=== PATIENT | female | born 1990 | race Caucasian/White ===

== ENCOUNTER 2018-02-05 15:37 | Outpatient (CLI) | payer MEDICAID, SELFPAY ==
[2018-02-07 12:26] LABS: Syphilis Serology (RPR) Negative (Negative)
[2018-02-07 12:38] LABS: Hepatitis C Ab w Rflx HCV PCR Negative (NEGAT)
== END 2018-02-05 15:57 ==
PROVIDERS: Visit Provider Nurse Practitioner Adult Health
DX: Z11.8 Encounter for screening for other infectious and parasitic diseases (principal); Z11.3 Encounter for screening for infections with a predominantly sexual mode of transmission; Z01.84 Encounter for antibody response examination
CPT/HCPCS: 36415; 86803; 86592

== ENCOUNTER 2018-03-20 11:49 | Emergency (ER) | payer MEDICAID, SELFPAY ==
[2018-03-20 11:53] VITALS: BP 123/81; PULSE 102; RESP 20; TEMP 36.7; O2SAT 100
--- NOTE | 2018-03-20 12:27 | W.ED.GENAD ---
Discharge Plan Disposition Patient Disposition: HOME Condition: Good Discharge Details Chief Complaint: Nk/Back Pain Clinical Impression: Low back strain Primary Care Provider: NONE,NONE ED Provider: Poi Sierra Meds and New Rx's Prescriptions: New methylprednisolone [Medrol (Farzad)] 4 mg tablets,dose pack 4 mg PO DAILY Qty: 21 RF: 0 cyclobenzaprine 10 mg tablet 10 mg PO TID PRN (Reason: muscle spasm) Qty: 9 RF: 0 lidocaine 5 % adhesive patch,medicated 1 patch TP DAILY Qty: 5 RF: 0 No Action medroxyprogesterone [Depo-Provera] 150 mg/mL Suspension 1 ea IM [id number] RF: 0 lf-uy-wdzb-FA-Ca carb-vit K [Women's Multivitamin] 18 mg iron-400 mcg-500 mg Tablet 1 tab PO DAILY RF: 0 Discharge Instructions Instructions: Low Back Strain (ED) Stand Alone Forms: Physical Therapy Referral Referrals: [facility]. [Outside] - Return if symptoms worsen Discharge Data Discharge Date/Time-TO BE ENTERED AT DEPARTURE: 03/20/18 14:07 Medical Decision Making Likely exacerbation of chronic back pain with muscle strain. She has never had x-ray so we will get baseline today. Last visit here for same injury/pain Valium 10 mg PO was used with good benefit so we will start with that. I advised she should not work and rest for at least a week. I will refer to PT and advised to fu with pcp in a month. I will also try her on a medrol dose pack. Pt reports improvement after Valium. Apprised of x-ray impression. I prescribed Flexeril, lidocaine patches, and steroids. Advised to rest and return to ED if symptoms worsen otherwise with pcp. PT referral provided. Imaging Data Radiologic Study: My impression: no acute esperanza pathology. Radiologist's impression: normal LS spine HPI General Date/Time Provider Initiated Documentation: 03/20/18 12:10. Limitations to Documentation: no limitations. Information obtained by: patient. History of Present Illness 27 year old F presents to the emergency department with the chief complaint of low back pain, HPI Narrative: 27 y/o female here with c/o low back pain that radiates down right leg. She felt a pull in her back last night while lifting a large bag of garbage. 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 She denies any fever, chills, cp, sob, or /GI complaints. She was evaluated and treated for similar problem three months ago here in the ED with Valium and rolandoeril with GE. Related Data Home Medications Medication Instructions Recorded Confirmed cyclobenzaprine 10 mg PO TID PRN #9 tab 03/20/18 lidocaine 1 patch TP DAILY #5 each 03/20/18 medroxyprogesterone [Depo-Provera] 1 ea IM [id number] 03/20/18 03/20/18 methylprednisolone [Medrol (Farzad)] 4 mg PO DAILY #21 dose pk 03/20/18 fj-qa-wsre-FA-Ca carb-vit K 1 tab PO DAILY 03/20/18 03/20/18 [Women's Multivitamin] Previous Rx's Medication Instructions Recorded cyclobenzaprine 10 mg PO TID PRN #9 tab 03/20/18 lidocaine 1 patch TP DAILY #5 each 03/20/18 methylprednisolone [Medrol (Farzad)] 4 mg PO DAILY #21 dose pk 03/20/18 Allergies Allergy/AdvReac Type Severity Reaction Status Date / Time venom-honey bee AdvReac swelling Verified 03/20/18 11:54 [bee venom (honey bee)] of area General Stated Complaint: Nk/Back Pain ANUJ: 4 Review of Systems Constitutional Reports as per HPI Cardiovascular Reports system reviewed and no additional complaints, except as docu Respiratory Reports system reviewed and no additional complaints, except as docu Gastrointestinal Reports system reviewed and no additional complaints, except as docu Musculoskeletal Reports back pain PFSH Social History Smoking/Tobacco Use Status: Current every day Exam Const General: cooperative, no acute distress and other (smells og cigerettes ) Nutritional Appearance: well nourished Orientation: alert, awake and oriented x3 Eyes General: appearance normal, both eyes and all related structures Neck Neck: normal visual inspection, full ROM, no lymphadenopathy and no meningeal signs Resp Effort & Inspection: normal respiratory effort Auscultation: clear to auscultation bilaterally Cardio Rhythm: regular rhythm Heart Sounds: S1 normal and S2 normal GI Inspection: normal to inspection Palpation: nontender Back/Spine/Pelvis Back: no CVA tenderness and CVA tenderness Cervical Spine: normal cervical lordosis, cervical ROM normal and No cervical muscular tenderness Thoracic/Lumbar Spine: thoracic and lumbar spine normal to inspection, thoraco-lumbar ROM normal, pain with thoraco-lumbar ROM, paraspinal tenderness, No thoracic spinal tenderness, No lumbar spinal tenderness and straight leg raise positive Pelvis: no pain with anterior-posterior compression and sciatic notch tenderness on the right Sacrum: no ecchymosis and no tenderness Coccyx: no swelling and no tenderness Other: no saddle anesthesia Skin General skin exam: no rashes or lesions noted Neuro General: alert, awake, oriented x3 and gait normal Extrem General: normal to inspection, full ROM and normal capillary refill Psych Appearance: grossly normal Mental Status: mental status grossly normal Speech and Movement: speech and movement normal Course Vital Signs Temperature 36.7 C 03/20/18 11:53 Pulse 102 H 03/20/18 11:53 Respiratory Rate 20 03/20/18 11:53 Blood Pressure 123/81 03/20/18 11:53 Pulse Oximetry 100 03/20/18 11:53 Temperature 36.7 C 03/20/18 11:53 Temperature Source Temporal Artery Scan 03/20/18 11:53 Pulse 102 H 03/20/18 11:53 Respiratory Rate 20 03/20/18 11:53 Blood Pressure 123/81 03/20/18 11:53 Blood Pressure Position Sitting 03/20/18 11:53 Pulse Oximetry 100 03/20/18 11:53 Pain Level 7 03/20/18 11:53
--- NOTE | 2018-03-20 12:32 | ED.GENADUL_ITS ---
Discharge Plan Disposition Patient Disposition: HOME Condition: Good Discharge Details Chief Complaint: Nk/Back Pain Clinical Impression: Low back strain Primary Care Provider: NONE,NONE ED Provider: Pio Sierra Meds and New Rx's Prescriptions: New methylprednisolone [Medrol (Farzad)] 4 mg tablets,dose pack 4 mg PO DAILY Qty: 21 RF: 0 cyclobenzaprine 10 mg tablet 10 mg PO TID PRN (Reason: muscle spasm) Qty: 9 RF: 0 lidocaine 5 % adhesive patch,medicated 1 patch TP DAILY Qty: 5 RF: 0 No Action medroxyprogesterone [Depo-Provera] 150 mg/mL Suspension 1 ea IM [id number] RF: 0 th-nn-vgef-FA-Ca carb-vit K [Women's Multivitamin] 18 mg iron-400 mcg-500 mg Tablet 1 tab PO DAILY RF: 0 Discharge Instructions Instructions: Low Back Strain (ED) Stand Alone Forms: Physical Therapy Referral Referrals: [facility] Emergency Dept. [Outside] - Return if symptoms worsen Discharge Data Discharge Date/Time-TO BE ENTERED AT DEPARTURE: 03/20/18 14:07 Medical Decision Making Likely exacerbation of chronic back pain with muscle strain. She has never had x -ray so we will get baseline today. Last visit here for same injury/pain Valium 10 mg PO was used with good benefit so we will start with that. I advised she should not work and rest for at least a week. I will refer to PT and advised to fu with pcp in a month. I will also try her on a medrol dose pack. Pt reports improvement after Valium. Apprised of x-ray impression. I prescribed Flexeril, lidocaine patches, and steroids. Advised to rest and return to ED if symptoms worsen otherwise with pcp. PT referral provided. Imaging Data Radiologic Study: My impression: no acute esperanza pathology. Radiologist's impression: normal LS spine HPI General Date/Time Provider Initiated Documentation: 03/20/18 12:10 . Limitations to Documentation: no limitations . Information obtained by: patient . History of Present Illness 27 year old F presents to the emergency department with the chief complaint of low back pain, HPI Narrative: 27 y/o female here with c/o low back pain that radiates down right leg. She felt a pull in her back last night while lifting a large bag of garbage. 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 She denies any fever, chills, cp, sob, or /GI complaints. She was evaluated and treated for similar problem three months ago here in the ED with Valium and rolandoeril with GE. Related Data Home Medications Medication Instructions Recorded Confirmed cyclobenzaprine 10 mg PO TID PRN #9 tab 03/20/18 lidocaine 1 patch TP DAILY #5 each 03/20/18 medroxyprogesterone [Depo-Provera] 1 ea IM [id number] 03/20/18 03/20/18 methylprednisolone [Medrol (Farzad)] 4 mg PO DAILY #21 dose pk 03/20/18 fm-ki-zflu-FA-Ca carb-vit K 1 tab PO DAILY 03/20/18 03/20/18 [Women's Multivitamin] Previous Rx's Medication Instructions Recorded cyclobenzaprine 10 mg PO TID PRN #9 tab 03/20/18 lidocaine 1 patch TP DAILY #5 each 03/20/18 methylprednisolone [Medrol (Farzad)] 4 mg PO DAILY #21 dose pk 03/20/18 Allergies Allergy/AdvReac Type Severity Reaction Status Date / Time venom-honey bee AdvReac swelling Verified 03/20/18 11:54 [bee venom (honey bee)] of area General Stated Complaint: Nk/Back Pain ANUJ: 4 Review of Systems Constitutional Reports as per HPI Cardiovascular Reports system reviewed and no additional complaints, except as docu Respiratory Reports system reviewed and no additional complaints, except as docu Gastrointestinal Reports system reviewed and no additional complaints, except as docu Musculoskeletal Reports back pain PFSH Social History Smoking/Tobacco Use Status: Current every day Exam Const General: cooperative, no acute distress and other (smells og cigerettes ) Nutritional Appearance: well nourished Orientation: alert, awake and oriented x3 Eyes General: appearance normal, both eyes and all related structures Neck Neck: normal visual inspection, full ROM, no lymphadenopathy and no meningeal signs Resp Effort & Inspection: normal respiratory effort Auscultation: clear to auscultation bilaterally Cardio Rhythm: regular rhythm Heart Sounds: S1 normal and S2 normal GI Inspection: normal to inspection Palpation: nontender Back/Spine/Pelvis Back: no CVA tenderness and CVA tenderness Cervical Spine: normal cervical lordosis, cervical ROM normal and No cervical muscular tenderness Thoracic/Lumbar Spine: thoracic and lumbar spine normal to inspection, thoraco- lumbar ROM normal, pain with thoraco-lumbar ROM, paraspinal tenderness, No thoracic spinal tenderness, No lumbar spinal tenderness and straight leg raise positive Pelvis: no pain with anterior-posterior compression and sciatic notch tenderness on the right Sacrum: no ecchymosis and no tenderness Coccyx: no swelling and no tenderness Other: no saddle anesthesia Skin General skin exam: no rashes or lesions noted Neuro General: alert, awake, oriented x3 and gait normal Extrem General: normal to inspection, full ROM and normal capillary refill Psych Appearance: grossly normal Mental Status: mental status grossly normal Speech and Movement: speech and movement normal Course Vital Signs Temperature 36.7 C 03/20/18 11:53 Pulse 102 H 03/20/18 11:53 Respiratory Rate 20 03/20/18 11:53 Blood Pressure 123/81 03/20/18 11:53 Pulse Oximetry 100 03/20/18 11:53 Temperature 36.7 C 03/20/18 11:53 Temperature Source Temporal Artery Scan 03/20/18 11:53 Pulse 102 H 03/20/18 11:53 Respiratory Rate 20 03/20/18 11:53 Blood Pressure 123/81 03/20/18 11:53 Blood Pressure Position Sitting 03/20/18 11:53 Pulse Oximetry 100 03/20/18 11:53 Pain Level 7 03/20/18 11:53
[2018-03-20] MEDS: Diazepam 5 MG TAB 10 MG PO (12:58)
--- NOTE | 2018-03-20 13:44 | DI.RAD_ITS ---
SYMPTOMS/DIAGNOSIS: BACK PAIN WITH RADIATION DOWN RIGHT LEG LUMBOSACRAL SPINE: AP, lateral, oblique and cone-down lateral projections of the lower lumbar spine and sacrum were obtained. The vertebral bodies are intact. There is no evidence of disc space narrowing. The pedicles, spinous and transverse processes are well maintained. There is minimal facet joint arthropathy. There is no evidence of spondylolysis or spondylolisthesis and the sacrum or sacroiliac joints are normal. SUMMARY: Normal LS spine.
== END 2018-03-20 14:07 | disposition home or self-care (01) ==
LOC: ER 13:39
PROVIDERS: Emergency Provider Nurse Practitioner Family
DX: S39.012A Strain of muscle, fascia and tendon of lower back, initial encounter (principal); X50.0XXA Overexertion from strenuous movement or load, initial encounter
CPT/HCPCS: 99283; 72110

== ENCOUNTER 2018-04-12 18:27 | Emergency (ER) | payer MEDICAID, SELFPAY ==
[2018-04-12 18:33] VITALS: BP 119/77; PULSE 113; RESP 16; TEMP 36.9; O2SAT 100
--- NOTE | 2018-04-12 19:50 | W.ED.GENAD ---
Discharge Plan Disposition Patient Disposition: HOME Condition: Good Discharge Details Chief Complaint: Cellulitis Clinical Impression: Cellulitis Primary Care Provider: None,None ED Provider: Jorge A Harris Home Meds and New Rx's Prescriptions: New clindamycin HCl 150 mg capsule 450 mg PO TID 7 Days Qty: 63 RF: 0 acetaminophen [Mapap Extra Strength] 500 MG tablet 1,000 mg PO Q6H 5 Days Qty: 60 RF: 0 ibuprofen [Motrin IB] 200 MG tablet 600 mg PO Q6H 5 Days Qty: 60 RF: 0 No Action medroxyprogesterone [Depo-Provera] 150 mg/mL Suspension 1 ea IM [id number] RF: 0 pa-ug-xejg-FA-Ca carb-vit K [Women's Multivitamin] 18 mg iron-400 mcg-500 mg Tablet 1 tab PO DAILY RF: 0 Discharge Instructions Instructions: Cellulitis (ED) Additional Instructions: Please take the Tylenol, Motrin, and clindamycin as directed. Please take the clindamycin with yogurt with live culture to prevent any diarrhea. If you notice any worsening of your symptoms, or any new symptoms such as spreading of the redness up your arm, vomiting, diarrhea, fever, chills, shortness of breath, chest pain, numbness, weakness, or fainting , please return immediately to the emergency department for reevaluation. Please follow up with your primary care provider as soon as possible for reassessment and reevaluation. As always, it was a pleasure participating in your medical care today. Medical Decision Making This is a 27-year-old female who presents with signs and symptoms consistent with a right antecubital abscess in the location where she normally uses her needles for IV drug use injection. Bedside exam demonstrates a notable abscess with fluctuance, no evidence of vessel inclusion in the abscess itself. The abscess was incised and drained. Patient refused the 11 blade, and so an 18-gauge needle was utilized. A notable amount of purulent discharge was exuded. This was sent for culturing. Patient tolerated the procedure well. Her tetanus status is up-to-date. Patient will be given clindamycin here, and sent home with a prescription for clindamycin, Tylenol, and ibuprofen. We discussed red flags which to return including the importance of close follow-up and drug cessation. I have extensively reviewed the treatment plan and discharge instructions with the patient and their family. I have addressed all patient concerns at this time. The patient and family was made aware of what symptoms to monitor for that would warrant a return to the emergency department. Discussed the plan with the patient and family, they demonstrate verbal understanding and agreement with our assessment and plan at this time. Time out was taken to identify the correct patient, procedure, and site. Risks and benefits were discussed with the patient and consent was obtained. Ultrasound was used to locate the site of maximal fluid collection. The site was sterilized and draped in the typical fashion. 20% topical benzocaine was applied to the area, and Appropriate analgesia was obtained. The abscess was incised with an 18-gauge needle secondary to patient refusal for the 11 blade, and greater than 10 cc of purulent material and blood were expressed. The wound was cleaned, and dressed. Blood loss was minimal. The patient tolerated the procedure well. There were no complications HPI General Date/Time Provider Initiated Documentation: 04/12/18 18:40. HPI Narrative: This is a 27-year-old female with a past medical history of IV and illicit drug use who presents today for abscess in the right arm. She states that for the last 3 days she has noticed redness and swelling in her right arm, at the antecubital region, a location that she commonly injects in. She denies any associated fever or chills. She denies any associated numbness, tingling, chest pain or shortness of breath. She has never had an abscess this big before. Patient states that her tetanus is up-to-date within the last 10 years. She denies any other associated symptoms. Patient denies any recent surgeries or pertinent family history. Related Data Home Medications Medication Instructions Recorded Confirmed medroxyprogesterone [Depo-Provera] 1 ea IM [id number] 03/20/18 04/12/18 xz-on-sxbl-FA-Ca carb-vit K 1 tab PO DAILY 03/20/18 04/12/18 [Women's Multivitamin] acetaminophen [Mapap Extra 1,000 mg PO Q6H 5 Days #60 tab 04/12/18 Strength] clindamycin HCl 450 mg PO TID 7 Days #63 cap 04/12/18 ibuprofen [Motrin Ib] 600 mg PO Q6H 5 Days #60 tab 04/12/18 Previous Rx's Medication Instructions Recorded acetaminophen [Mapap Extra 1,000 mg PO Q6H 5 Days #60 tab 04/12/18 Strength] clindamycin HCl 450 mg PO TID 7 Days #63 cap 04/12/18 ibuprofen [Motrin Ib] 600 mg PO Q6H 5 Days #60 tab 04/12/18 Allergies Allergy/AdvReac Type Severity Reaction Status Date / Time venom-honey bee AdvReac swelling Verified 04/12/18 18:37 [bee venom (honey bee)] of area General Stated Complaint: Cellulitis ANUJ: 3 Review of Systems Review of Systems All systems reviewed & are unremarkable except as noted in HPI and below PFSH Social History Smoking/Tobacco Use Status: Current every day Social History Smoking/Tobacco Use Status: Current every day Exam Narrative Exam Narrative: 1.Const: Well-nourished, Well-developed, appearing stated age 2.Eyes: PERRL, no conjunctival injection, and symmetrical lids. 3.ENT: Atraumatic external nose and ears. Moist MM. Neck: Symmetric, trachea midline, No thyromegaly. 4.CVS: +S1/S2, No murmurs or gallops. Peripheral pulses 2+ and equal in all extremities. Brisk capillary refill in all extremities. 5.RESP: Unlabored respiratory effort. Clear to auscultation bilaterally. No wheezes rales or rhonchi 6.GI: Soft, Nontender/Nondistended, No hepatosplenomegaly. No guarding or rebound. 7.MSK: Normocephalic/Atraumatic, Extremities w/o deformity or ttp No cyanosis or clubbing, Normal movement of all extremities 8.Skin: Warm, patient demonstrates a notable erythematous lesion over the right antecubital location. Fluctuance is noted. Bedside ultrasound confirms a fluctuant abscess, dimensions are roughly 1.5 x 1.5 cm. The erythema extends around the central location roughly 4 cm. No significant streaking up the arm. No evidence of cellulitis distally, normal sensation distally. Radial pulses +2 bilaterally. Bedside ultrasound shows no evidence of intra-abscess artery or intra-abscess vein. 9.Neuro: reproducer II-XII grossly intact. Sensation grossly intact, no focal neurologic deficits. 10.Psych: (AAO) x3. Appropriate mood and affect Course Vital Signs Temperature 36.9 C 04/12/18 18:33 Pulse 113 H 04/12/18 18:33 Respiratory Rate 16 04/12/18 18:33 Blood Pressure 119/77 04/12/18 18:33 Pulse Oximetry 100 04/12/18 18:33 Temperature 36.9 C 04/12/18 18:33 Temperature Source Skin 04/12/18 18:33 Pulse 113 H 04/12/18 18:33 Respiratory Rate 16 04/12/18 18:33 Respiratory Effort 04/12/18 18:33 Blood Pressure 119/77 04/12/18 18:33 Blood Pressure Position Sitting 04/12/18 18:33 Pulse Oximetry 100 04/12/18 18:33 Oxygen Delivery Method Room Air 04/12/18 18:33 Oxygen Flow Rate 0 04/12/18 18:33 Pain Level 8 04/12/18 18:33 Lab/Test Results Lab/Test Results: 04/12/18 19:40 Arm - Right Skin Culture - Pending POC- Test(urine) Negative
--- NOTE | 2018-04-12 20:04 | ED.GENADUL_ITS ---
Discharge Plan Disposition Patient Disposition: HOME Condition: Good Discharge Details Chief Complaint: Cellulitis Clinical Impression: Cellulitis Primary Care Provider: None,None ED Provider: Jorge A Harris Home Meds and New Rx's Prescriptions: New clindamycin HCl 150 mg capsule 450 mg PO TID 7 Days Qty: 63 RF: 0 acetaminophen [Mapap Extra Strength] 500 MG tablet 1,000 mg PO Q6H 5 Days Qty: 60 RF: 0 ibuprofen [Motrin IB] 200 MG tablet 600 mg PO Q6H 5 Days Qty: 60 RF: 0 No Action medroxyprogesterone [Depo-Provera] 150 mg/mL Suspension 1 ea IM [id number] RF: 0 [id number] carb-vit K [Women's Multivitamin] 18 mg iron-400 mcg-500 mg Tablet 1 tab PO DAILY RF: 0 Discharge Instructions Instructions: Cellulitis (ED) Additional Instructions: Please take the Tylenol, Motrin, and clindamycin as directed. Please take the clindamycin with yogurt with live culture to prevent any diarrhea. If you notice any worsening of your symptoms, or any new symptoms such as spreading of the redness up your arm, vomiting, diarrhea, fever, chills, shortness of breath , chest pain, numbness, weakness, or fainting , please return immediately to the emergency department for reevaluation. Please follow up with your primary care provider as soon as possible for reassessment and reevaluation. As always, it was a pleasure participating in your medical care today. Medical Decision Making This is a 27-year-old female who presents with signs and symptoms consistent with a right antecubital abscess in the location where she normally uses her needles for IV drug use injection. Bedside exam demonstrates a notable abscess with fluctuance, no evidence of vessel inclusion in the abscess itself. The abscess was incised and drained. Patient refused the 11 blade, and so an 18-gauge needle was utilized. A notable amount of purulent discharge was exuded. This was sent for culturing. Patient tolerated the procedure well. Her tetanus status is up-to-date. Patient will be given clindamycin here , and sent home with a prescription for clindamycin, Tylenol, and ibuprofen. We discussed red flags which to return including the importance of close follow- up and drug cessation. I have extensively reviewed the treatment plan and discharge instructions with the patient and their family. I have addressed all patient concerns at this time. The patient and family was made aware of what symptoms to monitor for that would warrant a return to the emergency department. Discussed the plan with the patient and family, they demonstrate verbal understanding and agreement with our assessment and plan at this time. Time out was taken to identify the correct patient, procedure, and site. Risks and benefits were discussed with the patient and consent was obtained. Ultrasound was used to locate the site of maximal fluid collection. The site was sterilized and draped in the typical fashion. 20% topical benzocaine was applied to the area, and Appropriate analgesia was obtained. The abscess was incised with an 18-gauge needle secondary to patient refusal for the 11 blade, and greater than 10 cc of purulent material and blood were expressed. The wound was cleaned, and dressed. Blood loss was minimal. The patient tolerated the procedure well. There were no complications HPI General Date/Time Provider Initiated Documentation: 04/12/18 18:40 . HPI Narrative: This is a 27-year-old female with a past medical history of IV and illicit drug use who presents today for abscess in the right arm. She states that for the last 3 days she has noticed redness and swelling in her right arm, at the antecubital region, a location that she commonly injects in. She denies any associated fever or chills. She denies any associated numbness, tingling, chest pain or shortness of breath. She has never had an abscess this big before. Patient states that her tetanus is up-to- date within the last 10 years. She denies any other associated symptoms. Patient denies any recent surgeries or pertinent family history. Related Data Home Medications Medication Instructions Recorded Confirmed medroxyprogesterone [Depo-Provera] 1 ea IM [id number] 03/20/18 04/12/18 ip-rf-tuvj-FA-Ca carb-vit K 1 tab PO DAILY 03/20/18 04/12/18 [Women's Multivitamin] acetaminophen [Mapap Extra 1,000 mg PO Q6H 5 Days #60 tab 04/12/18 Strength] clindamycin HCl 450 mg PO TID 7 Days #63 cap 04/12/18 ibuprofen [Motrin Ib] 600 mg PO Q6H 5 Days #60 tab 04/12/18 Previous Rx's Medication Instructions Recorded acetaminophen [Mapap Extra 1,000 mg PO Q6H 5 Days #60 tab 04/12/18 Strength] clindamycin HCl 450 mg PO TID 7 Days #63 cap 04/12/18 ibuprofen [Motrin Ib] 600 mg PO Q6H 5 Days #60 tab 04/12/18 Allergies Allergy/AdvReac Type Severity Reaction Status Date / Time venom-honey bee AdvReac swelling Verified 04/12/18 18:37 [bee venom (honey bee)] of area General Stated Complaint: Cellulitis ANUJ: 3 Review of Systems Review of Systems All systems reviewed & are unremarkable except as noted in HPI and below PFSH Social History Smoking/Tobacco Use Status: Current every day Social History Smoking/Tobacco Use Status: Current every day Exam Narrative Exam Narrative: 1.Const: Well-nourished, Well-developed, appearing stated age 2.Eyes: PERRL, no conjunctival injection, and symmetrical lids. 3.ENT: Atraumatic external nose and ears. Moist MM. Neck: Symmetric, trachea midline, No thyromegaly. 4.CVS: +S1/S2, No murmurs or gallops. Peripheral pulses 2+ and equal in all extremities. Brisk capillary refill in all extremities. 5.RESP: Unlabored respiratory effort. Clear to auscultation bilaterally. No wheezes rales or rhonchi 6.GI: Soft, Nontender/Nondistended, No hepatosplenomegaly. No guarding or rebound. 7.MSK: Normocephalic/Atraumatic, Extremities w/o deformity or ttp No cyanosis or clubbing, Normal movement of all extremities 8.Skin: Warm, patient demonstrates a notable erythematous lesion over the right antecubital location. Fluctuance is noted. Bedside ultrasound confirms a fluctuant abscess, dimensions are roughly 1.5 x 1.5 cm. The erythema extends around the central location roughly 4 cm. No significant streaking up the arm. No evidence of cellulitis distally, normal sensation distally. Radial pulses +2 bilaterally. Bedside ultrasound shows no evidence of intra-abscess artery or intra-abscess vein. 9.Neuro: dispute specialist II-XII grossly intact. Sensation grossly intact, no focal neurologic deficits. 10.Psych: (AAO) x3. Appropriate mood and affect Course Vital Signs Temperature 36.9 C 04/12/18 18:33 Pulse 113 H 04/12/18 18:33 Respiratory Rate 16 04/12/18 18:33 Blood Pressure 119/77 04/12/18 18:33 Pulse Oximetry 100 04/12/18 18:33 Temperature 36.9 C 04/12/18 18:33 Temperature Source Skin 04/12/18 18:33 Pulse 113 H 04/12/18 18:33 Respiratory Rate 16 04/12/18 18:33 Respiratory Effort 04/12/18 18:33 Blood Pressure 119/77 04/12/18 18:33 Blood Pressure Position Sitting 04/12/18 18:33 Pulse Oximetry 100 04/12/18 18:33 Oxygen Delivery Method Room Air 04/12/18 18:33 Oxygen Flow Rate 0 04/12/18 18:33 Pain Level 8 04/12/18 18:33 Lab/Test Results Lab/Test Results: 04/12/18 19:40 Arm - Right Skin Culture - Pending POC- Test(urine) Negative
[2018-04-12] MEDS: Clindamycin 150 MG CAP 450 MG PO (20:09)
[2018-04-12 20:41] VITALS: BP 122/64; PULSE 106; RESP 16; O2SAT 100
== END 2018-04-12 20:28 | disposition home or self-care (01) ==
LOC: ER 20:30
PROVIDERS: Emergency Provider Student in an Organized Health Care Education/Training Program
DX: L03.113 Cellulitis of right upper limb (principal); B95.61 Methicillin susceptible Staphylococcus aureus infection as the cause of diseases classified elsewhere; B96.89 Other specified bacterial agents as the cause of diseases classified elsewhere; F11.20 Opioid dependence, uncomplicated
CPT/HCPCS: 10060; 81025; 87077; 87070; 87186

== ENCOUNTER 2018-06-02 15:57 | Outpatient (REF) | payer MEDICAID, SELFPAY ==
--- NOTE | 2018-06-02 14:30 | PAPFT_PTH ---
PATIENT: Sammi Robertson LOC: [facility] U#:[id number] AGE/SX: 27/F ROOM: RE06/02/[address]: Mar Hahn : 1990 BED: DIS: 06/02/2018 SPEC #: [id number] RECD: 06/02/18 18:26 STATUS: SHELLEY REJamar #: [id number] VALORIE: 06/02/18 14:[address]: Mar Hahn DEPT: [facility] Cytology RECD BY: Kamilla Catalan ENTERED: 06/02/18 18:26 SP TYPE: PAPFT PARISH DR: None Tissues: 1 - CX/ENDOCX FOR PAP SMEARS Procedures: PAP THIN PREP/UVM Screening Comments: [id number]
[2018-06-04 15:26] LABS: Chlamydia Result Negative; GC Result Negative; Specimen Description CERVIX
== END 2018-06-02 16:17 ==
LOC: NCHCN 15:57
PROVIDERS: Visit Provider Nurse Practitioner Family
DX: Z11.3 Encounter for screening for infections with a predominantly sexual mode of transmission (principal); Z12.4 Encounter for screening for malignant neoplasm of cervix; Z00.00 Encounter for general adult medical examination without abnormal findings; Z91.89 Other specified personal risk factors, not elsewhere classified; G43.909 Migraine, unspecified, not intractable, without status migrainosus
CPT/HCPCS: 87491; 87591; 88142

== ENCOUNTER 2018-06-03 09:30 | Outpatient (CLI) | payer MEDICAID, SELFPAY ==
[2018-06-04 10:37] LABS: Hepatitis C Ab w Rflx HCV PCR Negative (NEGAT)
[2018-06-04 10:41] LABS: HIV-1/2 Ag & Ab Screen Negative (NEGAT)
== END 2018-06-03 09:50 ==
PROVIDERS: PCP Nurse Practitioner Family; Visit Provider Nurse Practitioner Family
DX: Z11.59 Encounter for screening for other viral diseases (principal); Z91.89 Other specified personal risk factors, not elsewhere classified; Z11.4 Encounter for screening for human immunodeficiency virus [HIV]
CPT/HCPCS: 36415; 86803; 87389

== ENCOUNTER 2020-03-04 11:33 | Observation (INO) | payer MEDICAID, SELFPAY ==
[2020-03-04] VITALS (36 sets, daily range): BP systolic 77–124; BP diastolic 53–77; PULSE 44–95; RESP 7–30; TEMP 36.2–36.7; O2SAT 98–100
--- NOTE | 2020-03-04 11:57 | ED.GENADUL_ITS ---
Discharge Plan Disposition Patient Disposition: [facility] INPATIENT Condition: Stable Discharge Details Clinical Impression: Unintentional Tylenol overdose, Nausea & vomiting Admit Date/Time: 03/04/20 14:24 Admit Provider: Ed Marsh Attending Provider: Ed Marsh Primary Care Provider: Mar Hahn ED Provider: Mey Forrest Discharge Data Discharge Date/Time-TO BE ENTERED AT DEPARTURE: 03/04/20 17:11 Medical Decision Making 29-year-old female presents to the ED via EMS for right upper quadrant abdominal pain associated with nausea vomiting which began at 5:00 this morning. Patient reports that she had a toothache yesterday and took up to 6000 mg of Tylenol over the course of 24 hours. Denies any diarrhea or fever. She is also taking methadone 50 mg/day which she had not had today. Patient is unsure of last ingestion time she states sometime last night. She denies any attempt at self- harm. She states that she was taking it for tooth ache. Upon entrance into the room she was observed sticking her finger into her throat. She was instructed not to do so. 1235: Poision control contacted, spoke with Faina. Who recommends treatment with N-acetylcysteine due to elevated liver enzymes and symptoms. She states repeat in labs after 12 hours of observation. 1343: Patient reevaluation, patient states that on the days coming up to yesterday she reports taking approximately 2 g of Tylenol daily for this tooth pain. She denies taking any other medications which may contain acetaminophen such as [id number] cold medicines. She reports that she feels better as far as nausea and abdominal pain after medications. Acetylcysteine is infusing at this time. Initial labs show Tylenol level of 25, potassium is 3.2, anion gap 12.8, bilirubin is 1.1, AST is 245 and ALT is 201 lipase is 163. Urine protein is 30, ketones 40, large blood, small bilirubin, greater than 50 RBCs. Salicylate levels 3.3, urine drug screen shows positive for methadone and THC. Hepatitis screen added onto labs due to elevated liver enzymes. At this time I am concerned for possible acute acetaminophen hepatotoxicity. Differential diagnosis includes cholecystitis, hepatitis, or other intra- abdominal pathology. 1345: Hospitalist paged to discuss possible admission. 1412: Dr. Marsh is tied up in ICU with a resusitation and asks us to page Giselle Myrick 1423: Spoke with Giselle Myrick who accepts patient for admission. 1526: Care management arranged at bedside who states that after speaking with patient she is requesting to be discharged home. Conversation with patient and significant other regarding recommendation for admission for possible acute hepatotoxicity caused by Tylenol overdose and reevaluation in 12 hours as recommended by poison control. Patient verbalized understanding and is in agreement to be admitted at this time, she is feeling much better and appears to feel much better with treatment thus far. Discussed if she were to leave now would be AMA are AGAINST MEDICAL ADVICE. Patient agrees to stay for admission. HPI General Mode of arrival: EMS . Date/Time Provider Initiated Documentation: 03/04/20 11:57 . Limitations to Documentation: no limitations . Information obtained by: patient . HPI Narrative: 29-year-old female presents to the ED via EMS for right upper quadrant abdominal pain associated with nausea vomiting which began at 5:00 this morning. Patient reports that she had a toothache yesterday and took up to 6000 mg of Tylenol over the course of 24 hours. Denies any diarrhea or fever. She is also taking methadone 50 mg/day which she had not had today. Patient is unsure of last ingestion time she states sometime last night. She denies any attempt at self-harm. She states that she was taking it for tooth ache. Upon entrance into the room she was observed sticking her finger into her throat. She was instructed not to do so. Related Data Home Medications Medication Instructions Recorded Confirmed methadone 50 mg PO DAILY MDD Goes to clinic 03/04/20 03/04/20 Allergies Allergy/AdvReac Type Severity Reaction Status Date / Time venom-honey bee AdvReac swelling Verified 03/04/20 12:24 [bee venom (honey bee)] of area General Stated Complaint: Abd Prob ANUJ: 3 Review of Systems Narrative: Constitutional: Negative for weight loss, alert and oriented, well g roomed, normal body habitus, appears uncomfortable. HEENT: Denies trauma, headaches, blurry vision, nasal discharge, sore throat, trouble swallowing. Chest: Denies chest pain, palpitations, irregular rhythm, hypertension. Respiratory: Denies Shortness of breath, cough, hemoptysis. GI: Denies diarrhea, constipation. Positive abdominal pain, nausea vomiting. : Denies dysuria, hematuria, flank pain, rectal bleeding. Neuro: Denies dizziness, blurry vision, weakness, syncope, headache or facial numbness. Hematologic: Denies easy bruising, intolerance to heat or cold, hair loss. [facility] Social History Smoking/Tobacco Use Status: Current every day Tobacco Type: cigarettes Alcohol Intake: never Drug use: Occasionally Substance use type: marijuana and heroin Do you feel safe at home: Yes Do you feel safe in your relationship?: Yes Exam Narrative Exam Narrative: Constitutional: Alert and oriented x3. Appears stated age. Normal body habitus. Head: Normocephalic, no trauma. Eyes: Pupils PERRLA, Red reflex noted, EOM's intact. Eyelids symmetrical without lesions, discharge, or swelling. ENT: Bilateral TM's WNL, External ear normal to inspection, no mastoid TTP, swelling, or erythema, Nasal turbinates WNL, no nasal discharge. Normal dentition, Posterior pharynx WNL, no exudate. Chest: RRR, Normal S1, S2, distal pulses intact. Resp: Lungs clear to auscultation bilaterally, no wheezes, rales, or rhonchi. Abdomen: Soft nondistended, tender to palpation over right upper quadrant. Musculoskeletal: Normal gait, 5/5 strength to all four extremities. Skin: No suspicious rashes or lesions. Capillary refill less than 2 sec. Neurologic: Cranial nerves II-XII intact. Alert and oriented x 3. DTR's intact. Hematologic/Lymphatic: No ecchymosis, no lymphadenopathy. Course Vital Signs Vital signs: Vital Signs Temperature 36.2 C L 03/04/20 11:46 Pulse 68 03/04/20 11:46 Respiratory Rate 24 03/04/20 11:46 Blood Pressure 110/60 03/04/20 11:46 Pulse Oximetry 100 03/04/20 11:46 Temperature 36.2 C L 03/04/20 11:46 Temperature Source Skin 03/04/20 11:46 Pulse 68 03/04/20 11:46 Respiratory Rate 24 03/04/20 11:46 Blood Pressure 110/60 03/04/20 11:46 Blood Pressure Position Supine 03/04/20 11:46 Pulse Oximetry 100 03/04/20 11:46 Oxygen Delivery Method Room Air 03/04/20 11:46 Oxygen Flow Rate 0 03/04/20 11:46 Pain Level 10 03/04/20 11:46
--- NOTE | 2020-03-04 12:00 | RT.EKG_ITS ---
APPROVED REPORT Exam: Resting ECG Patient Location: E HR:50 bpm ECG Measurements Heart Rate 50 AXIS AK 154 P 85 QRSd 98 QRS 101 QT 482 T 67 QTc 440 Conclusion Sinus bradycardia...rate< 60 I have reviewed and interpreted ECG and agree with software generated interpretation.
[2020-03-04] MEDS: Normal Saline 1,000 ML 1000 ML IV (12:10)
[2020-03-04] MEDS: Ondansetron 4 MG/2 ML VIAL IVP ×2 (12:12→14:55)
[2020-03-04 12:13] LABS: Abs Immature Grans 0.01 10^3/uL (0.0-0.06); Absolute Basophil Count 0.02 10^3/uL (0.0-0.2); Absolute Eosinophil Count 0.02 10^3/uL (0.0-0.7); Absolute Monocyte Count 0.35 10^3/uL (0.1-0.8); Absolute Neutrophil Count 5.39 10^3/uL (1.2-6.7); Basophils % 0.3; Eosinophils % 0.3; HCT 44.3 % (36.0-46.0); HGB 14.7 g/dL (11.2-15.7); Immature Grans % 0.1; Lymphocytes % 20.6; MCH 31.9 pg (27.0-33.0); MCHC 33.2 % (32.0-36.0); MCV 96.1 fL (80-95); MPV 10.4 fL (8.0-11.0); Monocytes % 4.8; Neutrophils % 73.9; Nucleated RBC 0 %; Platelet Count 229 10^3/uL (130-400); RBC 4.61 10^6/uL (3.93-5.22); RDW 12.6 % (11.7-14.6); RDW-SD 45.1 fL; WBC 7.29 10^3/uL (4.4-10.8)
[2020-03-04 12:26] LABS: INR 1.1 (0.9-1.1); Prothrombin Time 10.9 sec (9.3-11.0)
[2020-03-04 12:28] LABS: ALT 201 U/L (14-59); AST 245 U/L (15-37); Albumin 4.6 g/dL (3.4-5.0); Alkaline Phosphatase 84 U/L (46-116); Anion Gap 12.8 mmol/L (3-11); BUN 14 mg/dL (7-18); Bilirubin, Total 1.1 mg/dL (0.2-1.0); CO2 21.2 mmol/L (21.0-32.0); CREATININE 0.69 mg/dL (0.55-1.02); Calcium 9.7 mg/dL (8.5-10.1); Chloride 105 mmol/L (98-107); Glucose 112 mg/dL (74-106); Lipase 163 U/L (73-393); Potassium 3.2 mmol/L (3.5-5.1); Sodium 139 mmol/L (136-145); Total Protein 7.9 g/dL (6.4-8.2)
[2020-03-04 12:41] LABS: Acetaminophen 25 ug/mL (10-30); Salicylate 3.3 mg/dL (2.8-20.0)
[2020-03-04 12:42] LABS: Bilirubin Small (Negative); Blood Large (Negative); Clarity Sl Cloudy (Clear); Glucose Negative (Negative); Ketones 40 mg/dL (Negative); Leukocyte Esterase Negative (Negative); Nitrite Negative (Negative); Specific Gravity >= 1.030 (1.005-1.025); Urobilinogen 0.2 EU/dL (Up TO 0.2); pH 5.5 (5-8)
[2020-03-04 12:54] LABS: HCG Qual (Urine) Negative
[2020-03-04 12:55] LABS: Epithelial Cells Moderate HPF (Negative); RBC >50 HPF (0-2); WBC 0-2 HPF (0-5)
[2020-03-04 12:56] LABS: Bacteria Few HPF (Negative); C & S Indicated? No/Sq. Contamination; Crystals Negative HPF (Negative); Mucus Moderate (Negative)
--- NOTE | 2020-03-04 13:14 | NUR.NOTE ---
Nursing Note: Weight based acetylcysteine dose verified with pharmacy and primary nurse. Provider aware of change in order to reflect appropriate loading dose and running rate.
[2020-03-04 13:23] LABS: *AMPHETAMINES SCREEN URINE Negative (Negative); *BARBITURATES SCREEN URINE Negative (Negative); *BENZODIAZEPINES SCREEN URINE Negative (Negative); Cannabinoids THC POSITIVE (Negative); Cocaine Screen,Urine Negative (Negative); METHADONE URINE SCREEN POSITIVE (Negative); OPIATES URINE SCREEN Negative (Negative)
[2020-03-04] MEDS: DEXTROSE 5%-WATER 250 ML 240.5 ML (13:28)
[2020-03-04 13:29] LABS: Tricyclic Antidepressants Negative (Negative)
--- NOTE | 2020-03-04 14:15 | DI.US_ITS ---
EXAM: US ABDOMEN CLINICAL HISTORY: RUQ abd pain, eval liver, gall bladder, tylenol OD TECHNIQUE: Ultrasound abdomen performed using standard protocol. COMPARISON: US ABDOMEN ULTRASOUND (P) from 10/01/2012 FINDINGS: LIVER: Normal size. Which there is a question of decreased liver echogenicity. There is a starry sk y appearance with increased echogenicity of the portal venules which is nonspecific but could be seco ndary to acute hepatitis or liver toxicity.. No focal liver lesions are seen.. GALLBLADDER: No evidence of cholelithiasis. No evidence of wall thickening. No pericholecystic fluid identified. LÓPEZ'S SIGN: Negative. BILIARY SYSTEM: No intrahepatic or extrahepatic biliary ductal dilation. KIDNEYS: Kidneys are symmetric in size. No evidence of renal calculi. No evidence of hydronephrosis. No renal mass or cyst identified. PANCREAS: Normal where visualized. SPLEEN: Not enlarged. ABDOMINAL AORTA AND IVC: Visualized portions normal caliber. ASCITES: None seen. IMPRESSION: Increased visibility of the portal venules and question of decreased liver echogenicity could be sec ondary to acute hepatitis or liver toxicity. No gallbladder abnormality. DATA REPOSITORY:
--- NOTE | 2020-03-04 14:33 | NUR.NOTE ---
Nursing Note: pt requesting to see provider-- wants to leave and go home without admission. Provider aware.
--- NOTE | 2020-03-04 14:48 | NUR.NOTE ---
Nursing Note: pt noted to be gagging self with multiple fingers of left hand- directly visualized by this nurse. Pt encouraged to stop attempting to induce vomiting and educated about the risks of causing trauma to mucosal tissue. Pt appears disinterested in this education.
--- NOTE | 2020-03-04 15:31 | HPE_ITS ---
Date of service: 03/04/20 Time of Service: 15:31 Assessment and Plan Assessment and plan (1) Unintentional Tylenol overdose: Start date: 03/04/20 Start time: 15:41 Status: Acute Assessment and plan: Was taking tylenol for tooth ache, consumed 6 gm yesterday, today presents with n/v and elevated LFT. Acetylsystine, q 4 and 12 hour salicylate levels. Telemetry Antiemetics, Ibuprofen for pain Abd u/s with hep panel Qualifiers: Encounter type: initial encounter Qualified Code(s): T39.1X1A - Poisoning by 4-Aminophenol derivatives, accidental (unintentional), initial encounter (2) Nausea & vomiting: Start date: 03/04/20 Start time: 15:43 Status: Acute Assessment and plan: likely from above. See above Qualifiers: Vomiting Intractability: non-intractable Vomiting type: unspecified Qualified Code(s): R11.2 - Nausea with vomiting, unspecified (3) Drug addiction in remission: Start date: 03/04/20 Start time: 15:43 Status: Acute Assessment and plan: Continue methadone. Found to methadone and THC in urine. (4) DVT prophylaxis: Start date: 03/04/20 Start time: 15:43 Status: Acute Assessment and plan: Not indicated in a 29 y.o female. Above case discussed with Dr. Marsh who is in agreement. History of Present Illness History of Present Illness Chief Complaint: Acetomanophen unintential overdose Narrative: 29 y.o female with no significant PMH except addiction on Methadone, presents to [facility] ED for RUQ with nausea and vomiting. She states this started after taking approx 6 gm of tylenol for tooth pain. Labs in the ED remarkable for elevated AST/ALT, lipase normal, salicylate 3.3. Potassium 3.2, Anion gap 12.8. Poison control was contacted by ED provider due to elevated LFT's they recommend acetylsystine with 4 and 12 hour salicylate levels. She is being admitted to m/s obs with telemetry for further management. Will obtain, hep panel, abdominal u/s with acute hepatitis or liver toxicity. Antiemetics for n/v and ibuprofen for pain. In 4 hours Tylenol level decreased from 25 to 6, she also has a history of IV drug use. Will r/o hep C. Review of Systems All systems reviewed & are unremarkable except as noted in HPI and below PFSH Social History Smoking/Tobacco Use Status: Current every day Tobacco Type: cigarettes Alcohol Intake: never Drug use: Occasionally Substance use type: marijuana and heroin Do you feel safe at home: Yes Do you feel safe in your relationship?: Yes Meds Home Medications and Allergies Home Medications Medication Instructions Recorded Confirmed Type methadone 50 mg PO DAILY MDD Goes to clinic 03/04/20 03/04/20 History Allergies Allergy/AdvReac Type Severity Reaction Status Date / Time venom-honey bee AdvReac swelling Verified 03/04/20 12:24 [bee venom (honey bee)] of area Exam Const General: cooperative, comfortable and no acute distress Eyes Pupils: PERRL EOM: EOM intact bilaterally Neck Lymphatic: no lymphadenopathy noted Chest Chest: normal inspection of the chest Resp Effort & Inspection: normal respiratory effort Auscultation: clear to auscultation bilaterally Cardio Rhythm: regular rhythm Heart Sounds: S1 normal and S2 normal GI Palpation: soft and other Auscultation: normal bowel sounds Other: Tender to palpation in RUQ Skin General skin exam: no rashes or lesions noted Rashes: no rashes Neuro General: patient alert, patient awake and patient oriented x3 Cognition: normal cognition Speech: speech normal Extrem General: full ROM and no clubbing, cyanosis or edema Psych Appearance: grossly normal and well kempt Mood: congruent mood Results Labs Result diagrams: 03/04/20 12:00 03/04/20 12:00 Labs: Laboratory Results - last 24 hr 03/04/20 03/04/20 03/04/20 12:00 12:00 12:00 WBC 7.29 RBC 4.61 Hgb 14.7 Hct 44.3 MCV 96.1 H MCH 31.9 MCHC 33.2 RDW 12.6 Plt Count 229 MPV 10.4 Immature Gran % 0.1 Neutrophils % 73.9 Lymphocytes % 20.6 Monocytes % 4.8 Eosinophils % 0.3 Basophils % 0.3 Nucleated RBC % 0 Absolute Neutrophils 5.39 Absolute Lymphocytes 1.50 Absolute Monocytes 0.35 Absolute Eosinophils 0.02 Absolute Basophils 0.02 PT INR Sodium 139 Potassium 3.2 L Chloride 105 Carbon Dioxide 21.2 Anion Gap 12.8 H BUN 14 Creatinine 0.69 Estimated GFR/1.73 m2 >= 60.00 Glucose 112 H Calcium 9.7 Magnesium 2.0 Total Bilirubin 1.1 H AST 245 H ALT 201 H Alkaline Phosphatase 84 Total Protein 7.9 Albumin 4.6 Lipase 163 Urine Color Urine Clarity Urine pH Ur Specific [place] Urine Protein Urine Ketones Urine Blood Urine Nitrite Urine Bilirubin Urine Urobilinogen Ur Leukocyte Esterase Urine RBC Urine WBC Ur Epithelial Cells Urine Crystals Urine Bacteria Urine Mucus Ur Culture Indicated? Urine Glucose Urine HCG, Qual Salicylates 3.3 Urine Opiates Screen Urine Methadone Screen Acetaminophen 25 Ur Barbiturates Screen Ur Tricyclics Screen Ur Amphetamines Screen U Benzodiazepines Scrn Urine Cocaine Screen Ur THC Screen 03/04/20 03/04/20 03/04/20 12:00 12:35 12:35 WBC RBC Hgb Hct MCV MCH MCHC RDW Plt Count MPV Immature Gran % Neutrophils % Lymphocytes % Monocytes % Eosinophils % Basophils % Nucleated RBC % Absolute Neutrophils Absolute Lymphocytes Absolute Monocytes Absolute Eosinophils Absolute Basophils PT 10.9 INR 1.1 Sodium Potassium Chloride Carbon Dioxide Anion Gap BUN Creatinine Estimated GFR/1.73 m2 Glucose Calcium Magnesium Total Bilirubin AST ALT Alkaline Phosphatase Total Protein Albumin Lipase Urine Color Sammi Urine Clarity Sl cloudy Urine pH 5.5 Ur Specific [place] >= 1.030 H Urine Protein 30 H Urine Ketones 40 H Urine Blood Large H Urine Nitrite Negative Urine Bilirubin Small H Urine Urobilinogen 0.2 Ur Leukocyte Esterase Negative Urine RBC >50 H Urine WBC 0-2 Ur Epithelial Cells Moderate Urine Crystals Negative Urine Bacteria Few Urine Mucus Moderate Ur Culture Indicated? No/sq. contamination Urine Glucose Negative Urine HCG, Qual Negative Salicylates Urine Opiates Screen Negative Urine Methadone Screen Positive A Acetaminophen Ur Barbiturates Screen Negative Ur Tricyclics Screen Negative Ur Amphetamines Screen Negative U Benzodiazepines Scrn Negative Urine Cocaine Screen Negative Ur THC Screen Positive A Last Vital Signs Temp 36.2 C L 03/04/20 11:46 Pulse 48 L 03/04/20 13:22 Resp 22 03/04/20 13:22 BP 92/56 L 03/04/20 13:22 Pulse Ox 100 03/04/20 13:22 COVID-19 Screening Have you,or household,traveled outside [place] in last 14 days?: No Had IN PERSON contact w/suspected or confirmed C-19 person: No
--- NOTE | 2020-03-04 15:50 | PDOC.ERCMIN ---
- If Service Date Differs Date of service: 03/04/20 Time of Service: 15:50 Care Management Initial Assess REASON FOR HOSPITALIZATION:: Unintentional Tylenol overdose, nausea and vomiting. PAST MEDICAL HISTORY/PAST SURGICAL HISTORY:: Medical History: DVT prophylaxis, drug addiction in remission, unintentional Tylenol overdose. No surgical history of record. PREVIOUS FUNCTIONAL STATUS/SOCIAL/FAMILY SUPPORTS:: Sammi lives in [place] with her fiance, Derian, her pug and her 2 cats. 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 She enjoys coloring and brianna painting. She names her fiance Derian and a friend, Tin, as her support system. Sammi is independent with her ADLs at baseline. CURRENT FUNCTIONAL STATUS:: Sammi is sitting in bed when CM comes to meet with her. Her fiance, Derian, is present in the room. She is contemplating whether to stay as recommended or leave against medical advice, but after further discussion with the ED provider, she decides to remain at the hospital as recommended. CM will continue to follow. ADVANCE DIRECTIVES:: None on file. Has patient been provided with info about the portal/API?: No Did the patient sign up for the portal?: No CODE STATUS:: Full Code INSURANCE COVERAGE / FINANCIAL ISSUES:: Medicaid. CURRENT HOME/COMMUNITY SERVICES/EQUIPMENT:: Sammi receives services through [employer] She is independent at baseline and does not have any home services or equipment. PRIMARY CARE PHYSICIAN:: Mar Hahn NP POTENTIAL DISCHARGE NEEDS:: Follow up appointment with PCP and discharge plan of care. PATIENT/FAMILY EDUCATION NEEDS:: Discharge instructions, limitations, follow up plan of care, including Ask Me Three and self management. ANTICIPATED BARRIERS TO DISCHARGE:: None. TRANSPORTATION:: Via [facility] to be arranged by CM. PLAN:: Anticipate Sammi will be discharged home with no new services when medically cleared by provider. She will follow up with her PCP and discharge plan of care as directed. Sammi will return home via [facility] to be arranged by CM when ready. CM will continue to follow.
--- NOTE | 2020-03-04 16:00 | NUR.NOTE ---
Nursing Note: methadone to be given by nursing, despite hepatic metabolism per provider.
--- NOTE | 2020-03-04 16:09 | NUR.NOTE ---
Nursing Note: attempted to verify if pt had in fact presented to [facility] for methadone dose today - pt states she has not. [facility] closed for the day- left number and asked for callback through answering service @ [phone]. No response as of yet.
[2020-03-04] MEDS: Methadone Liquid 10 MG/ML 50 MG PO (16:27)
[2020-03-04] MEDS: Nicotine 7 MG/24 HR PATCH TD (16:31)
--- NOTE | 2020-03-04 16:47 | NUR.NOTE ---
Nursing Note: asked to hold admit by hospitalist until repeat tylenol and salicylate levels are resulted, so as to determine ICU level of care versus M/S. Active Directory Architect, M/S CC and primary nurse made aware. Will page hospitalist after resulted.
[2020-03-04 16:48] LABS: Acetaminophen 6 ug/mL (10-30)
--- NOTE | 2020-03-04 17:00 | NUR.NOTE ---
Nursing Note: Per Chaitanya from [facility], pt receives take home dose. As of today, should have 1 week left. Pt adamant that she as not taken dose of methadone today, r/t nausea and vomiting. [facility] in [place] would like last dose letter faxed upon discharge, and are aware she has received dose in ED today. Dose of 50 mg confirmed verbally with Chaitanya.
[2020-03-04] MEDS: Potassium Chloride 20 MEQ TABCR 40 MEQ PO (18:24)
[2020-03-04 22:30] LABS: Salicylate < 2.8 mg/dL (2.8-20.0)
[2020-03-05 01:59] LABS: COVID-19 RT-PCR UVMMC Result Negative (Negative)
[2020-03-07 11:20] LABS: Hepatitis A Antibody IgM Negative (Negative); Hepatitis B Core Antibody Negative (Negative); Hepatitis B surface Ag Negative (Negative); Hepatitis C Ab w Rflx HCV PCR Negative (Negative)
--- NOTE | 2020-03-15 12:44 | W.PM.DS.N ---
Date of service: 03/04/20 Time of Service: 23:15 DS: Diagnosis Discharge Diagnosis (1) Unintentional Tylenol overdose: Status: Acute Asessment and Plan: See emergency room and admission H&P note for details. Patient took an estimate of 6 g of Tylenol over 24. And presented with nausea vomiting and abdominal discomfort with elevated LFTs and acetaminophen level of 25 mcg/mL which declined to 6 mcg/mL 4 hours post admission. Unclear as to the timing of her last dose of acetaminophen. Patient was treated with Mucomyst IV per protocol but left the hospital AGAINST MEDICAL ADVICE before completion of treatment. Condition on discharge unknown. (2) Nausea & vomiting: Status: Resolved (3) Transaminitis: Status: Acute Asessment and Plan: At the time of discharge patient had elevated LFTs with ultrasound findings suggestive of an acute hepatitis. Prognosis and condition uncertain at this time as the patient did not complete her treatment of Mucomyst. (4) Hypokalemia due to excessive gastrointestinal loss of potassium: Status: Resolved (5) Drug addiction in remission: Status: Chronic Discharge Plan Disposition Patient Disposition: AGAINST MEDICAL ADVICE Condition: Stable Discharge Details Reason For Visit: ACETAMINOPHEN OVERDOSE Admit Date/Time: 03/04/20 14:24 Admit Provider: Ed Marsh Attending Provider: Ed Marsh Primary Care Provider: Mar Hahn Hospital Course Hospital Course: 29-year-old female who presented emergency department with right upper quadrant abdominal pain with nausea and vomiting that began on the morning of admission. Patient had been suffering from a toothache and had taken up to 6 g of Tylenol over 24-hour period.Evaluation demonstrate hypokalemia 3.2 elevated anion gap of 12.8 and elevated transaminases with an AST of 245 and ALT of 201 with a total bilirubin 1.1. Lipase was normal at 163 and her toxicology screen demonstrated an elevated acetaminophen level of 25 with a salicylate level less than 2.8 and a urine drug tox screen positive for methadone and THC. Patient is a known former narcotic drug abuser and is on chronic methadone treatment. Ultrasound of her abdomen showed increased visibility of the portal venules and questionable decreased liver echogenicity possibly due to acute hepatitis or liver toxicity but no gallbladder or biliary abnormalities. Poison control was contacted by the emergency room personnel and it was advised the patient be admitted for observation with serial measurements of her LFTs and her acetaminophen levels at 6 and 12 hours post last ingestion. It was also recommended that Mucomyst be initiated. Patient was started on IV fluids and given antiemetics including Zofran. Patient was started on Mucomyst IV per protocol. Repeat acetaminophen level at 4 hours post admission was down to 6 mcg/mL. Patient's nausea and vomiting resolved. Patient left the hospital AGAINST MEDICAL ADVICE as we want to continue to monitor and complete the treatment of the Mucomyst with serial measurements of her LFTs. Patient left the hospital at 2315 on the same day as her admission. Patient was given education about the importance of staying for observation and the risk of liver injury. Patient signed papers indicating that she was leaving AGAINST MEDICAL ADVICE. Home Meds and New Rx's Prescriptions: No Action methadone 10 mg/mL Concentrate 50 mg PO DAILY MDD Goes to clinic RF: 0 Discharge Instructions Activity:: Activity as Tolerated Equipment/Supplies:: No Equipment Needed Diet:: As Tolerated Discharge Orders Discharge Orders: Discharge Order (Routine); Ordered 03/15/20 Ordered By: Ed Marsh Discharge Data Discharge Date/Time-TO BE ENTERED AT DEPARTURE: 03/04/20 23:10 Discharge Comment: refusing to stay. will arange her own transport. DS: Summary Status at Discharge Functional status at discharge: independent ambulation Overall status at discharge: patient is not back to baseline Mental Status: mental status grossly normal Speech and Movement: speech and movement normal Mood: congruent mood Affect: normal affect Time Spent with Patient providing and/or coordinating discharge services: Less than 30 minutes Exam Psych Mental Status: mental status grossly normal Speech and Movement: speech and movement normal Mood: congruent mood Affect: normal affect DS: Data Vitals/I&O Vitals and I&O: Vital Signs Temperature 36.7 C 03/04/20 17:26 Temperature Source Skin 03/04/20 11:46 Pulse 65 03/04/20 17:26 Pulse Rhythm Regular 03/04/20 19:50 Pulse 63 03/04/20 17:01 Respiratory Rate 14 03/04/20 17:26 Respiratory Effort Non-Labored 03/04/20 19:50 Respiratory Depth Normal 03/04/20 19:50 Respiratory Pattern Normal 03/04/20 19:50 Blood Pressure 107/75 03/04/20 17:26 Blood Pressure Mean 70 03/04/20 17:00 Blood Pressure Position Supine 03/04/20 11:46 Pulse Oximetry 100 03/04/20 17:26 Oxygen Delivery Method Room Air 03/04/20 17:26 Oxygen Flow Rate 0 03/04/20 17:26 Pain Level 4 03/04/20 17:26 [facility] Social History Smoking/Tobacco Use Status: Current every day Tobacco Type: cigarettes Smoking risk assessment performed?: Yes Alcohol Intake: never Drug use: Occasionally Substance use type: marijuana and heroin Do you feel safe at home: Yes Do you feel safe in your relationship?: Yes
== END 2020-03-04 23:10 | disposition left against medical advice (07) ==
LOC: ER 14:55 → MS 17:14
PROVIDERS: Nurse Practitioner Family; Physician Assistant; Admitting Provider Internal Medicine; Emergency Provider Registered Nurse Emergency; PCP Nurse Practitioner Family; Visit Provider Internal Medicine
DX: T39.1X1A Poisoning by 4-Aminophenol derivatives, accidental (unintentional), initial encounter (principal); R11.2 Nausea with vomiting, unspecified; F19.21 Other psychoactive substance dependence, in remission; K08.89 Other specified disorders of teeth and supporting structures; Z11.59 Encounter for screening for other viral diseases; F17.210 Nicotine dependence, cigarettes, uncomplicated
CPT/HCPCS: 36415; 80053; 80307; 83690; 86704; 86709; 86803; 87340; 93005; 96361; 96365; 96366; 96375; 96376; 99223; 99285; NC; U0003; 76700; 80329; 81003; 81015; 81025; 83735; 85025; 85610; 93010; 99220; J0132; J2405

== ENCOUNTER 2022-12-09 09:41 | Emergency (ER) | payer MEDICAID, SELFPAY ==
[2022-12-09 09:58] VITALS: BP 110/68; PULSE 95; RESP 18; TEMP 36.8; O2SAT 99
--- NOTE | 2022-12-09 10:00 | DI.RAD_ITS ---
Exam(s) XR ANKLE RT COMPLETE EXAM: XR ANKLE RT COMPLETE CLINICAL HISTORY: fall lateral ankle pain. TECHNIQUE: 2D digital imaging was performed. COMPARISON: No exams were available for comparison FINDINGS: 3 views There is prominent soft tissue swelling laterally. There is avulsion fracture at the tip of the lateral malleolus. No other fractures identified. No w idening of the ankle mortise. Talar dome unremarkable. No osseous tarsal coalition evident. IMPRESSION: Avulsion fracture of the tip of the lateral malleolus. Prominent overlying soft tissue swelling. DATA REPOSITORY: RADIATION DOSE DELIVERED:
--- NOTE | 2022-12-09 11:01 | DI.VRAD_ITS ---
PROCEDURE INFORMATION: Exam: XR Right Ankle Exam date and time: 12/09/2022 10:55 AM Age: 31 years old Clinical indication: Other: Fall lateral ankle pain TECHNIQUE: Imaging protocol: Radiologic exam of the right ankle. Views: 3 or more views. COMPARISON: No relevant prior studies available. FINDINGS: Bones/joints: Small possible osseous fragment at the distal margin of the lateral malleolus, possible small avulsion fracture. Correlate with site of pain. Soft tissues: Soft tissue swelling surrounding the ankle. Minimal edema in Kager's fat pad. Small joint effusion. IMPRESSION: Small possible osseous fragment at the distal margin of the lateral malleolus, possible small avulsion fracture. Correlate with site of pain. Dictated and Authenticated by: Santos Solano MD. Ordering:WILDER Ly MD
--- NOTE | 2022-12-09 11:31 | ED.GENADUL_ITS ---
Discharge Plan Disposition Patient Disposition: Home Discharge Details Clinical Impression: Avulsion fracture of right ankle Primary Care Provider: Mar Hahn ED Provider: Malachi Sal Home Meds and New Rx's Prescriptions: Continued methadone 10 mg/mL Concentrate 50 mg PO DAILY MDD Goes to clinic Discharge Instructions Instructions: Ankle Sprain (ED), R.I.C.E. Treatment (ED) Additional Instructions: You may continue to use [id number] pain medication as needed for your discomfort. Please use crutches over the next 2 to 3 days and then slowly advance activity as tolerated by pain. Please follow-up with orthopedist to ensure that you are healing well or return to the emergency department immediately for any new or significant worsening of symptoms. Referrals: [facility] [Provider Group] (Call the office in 2 days for arrangement of your follow-up appointment) Discharge Data Discharge Date/Time-TO BE ENTERED AT DEPARTURE: 12/09/22 11:49 Medical Decision Making Patient presenting to the emergency department for chief complaint of right ankle injury. She stepped abnormal off of her porch and rolled her right ankle. Patient does state that she is injured her right ankle in the past in a similar fashion. Patient denies any other injury or trauma. Physical exam shows significant tenderness to the lateral malleolus and surrounding soft tissue. Patient does have painful limited range of motion which I feel is mostly secondary to pain response. Exam is otherwise unremarkable patient in stable condition. We will perform radiological imaging and give ibuprofen pending results. Review of radiological imaging and radiologist interpretation shows avulsion fracture to the distal end of the lateral malleolus otherwise no other findings noted. Patient placed in walking boot and crutches for the next couple days and then weightbearing as tolerated. Patient was placed on the Ortho list for follow-up. After discussion of diagnosis and plan of care patient has no further needs, questions, or concerns and states clear understanding to return to the emergency department for any worsening symptoms. This documentation was generated using [employer] system, please disregard any oddities of phrase or misspellings. Imaging Data Radiologic Study: Radiologist's impression: Exam(s) PROCEDURE INFORMATION: Exam: XR Right Ankle Exam date and time: 12/09/2022 10:55 AM Age: 31 years old Clinical indication: Other: Fall lateral ankle pain TECHNIQUE: Imaging protocol: Radiologic exam of the right ankle. Views: 3 or more views. COMPARISON: No relevant prior studies available. FINDINGS: Bones/joints: Small possible osseous fragment at the distal margin of the lateral malleolus, possible small avulsion fracture. Correlate with site of pain. Soft tissues: Soft tissue swelling surrounding the ankle. Minimal edema in Kager's fat pad. Small joint effusion. IMPRESSION: Small possible osseous fragment at the distal margin of the lateral malleolus, possible small avulsion fracture. Correlate with site of pain. HPI General Mode of arrival: ambulatory . Date/Time Provider Initiated Documentation: 12/09/22 10:03 . Limitations to Documentation: no limitations . Information obtained by: patient and RN notes reviewed . History of Present Illness 31 year old F presents to the emergency department with the chief complaint of right ankle pain , described as moderate, Quality is described as sharp, Patient reports no radiation. Patient started experiencing this day(s) (1) and it has been constant. No relieving factors improve symptom(s), No exacerbating factors reported . Patient notes no other symptoms.. Patient did receive the following treatments prior to arrival, none Related Data Home Medications Medication Instructions Recorded Confirmed methadone 10 mg/mL oral concentrate 50 mg PO DAILY 03/04/20 12/09/22 Allergies Allergy/AdvReac Type Severity Reaction Status Date / Time venom-honey bee AdvReac swelling Verified 12/09/22 10:02 [bee venom (honey bee)] of area General Stated Complaint: Orthopedic ANUJ: 4 Review of Systems Narrative: 6 systems reviewed and unremarkable except what is marked below. Cardiovascular Cardiovascular: Denies syncope Musculoskeletal Musculoskeletal: Reports as per HPI, Reports arthralgias, Reports joint swelling and Reports limited range of motion Integumentary/Breasts Skin/Breast: Reports unusual bruising and Denies wounds Neurologic Neurologic: Denies syncope [facility] All Active Problems (Updated 12/09/22 @ 11:43 by Malachi Sal NP) Avulsion fracture of right ankle (Acute) Transaminitis (Acute) DVT prophylaxis (Acute) Drug addiction in remission (Chronic) Unintentional Tylenol overdose (Acute) Social History Smoking/Tobacco Use Status: Current every day Tobacco Type: cigarettes Smoking risk assessment performed?: Yes Alcohol Intake: never Drug use: Occasionally Substance use type: marijuana Details: 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 Do you feel safe at home: Yes Do you feel safe in your relationship?: Yes Exam Const General: cooperative, no acute distress and not ill appearing Orientation: alert, awake and oriented x3 HENMT Mouth: moist mucous membranes Resp Effort & Inspection: normal respiratory effort, able to speak in complete sentences and no respiratory distress Cardio Rate: regular rate Rhythm: regular rhythm Skin General skin exam: no rashes or lesions noted Neuro General: patient alert, patient awake, patient oriented x3, moves all extremit ies and no focal motor deficits Sensory Exam: no sensory deficits noted Extrem General: normal exam except as noted Right lower extremity: ankle Details: tenderness Location: of the lateral malleolus, swelling Details: laterally, abnormal ROM Details: pain with active ROM and pain with passive ROM and ecchymosis lateral and foot Details: normal capillary refill, normal to inspection, toes with normal ROM, vascular exam Details: dorsalis pedis pulse present, posterior tibial pulse present and normal capillary refill, tendon exam Details: active flexion normal and active extension normal and motor-sensory exam Details: two point discrimination normal and light-touch normal; no tenderness Course Vital Signs Vital signs: Vital Signs Temperature 36.8 C 12/09/22 09:58 Pulse 95 H 12/09/22 09:58 Respiratory Rate 18 12/09/22 09:58 Blood Pressure 110/68 12/09/22 09:58 Pulse Oximetry 99 12/09/22 09:58 Temperature 36.8 C 12/09/22 09:58 Temperature Source Skin 12/09/22 09:58 Pulse 95 H 12/09/22 09:58 Respiratory Rate 18 12/09/22 09:58 Respiratory Effort Normal 12/09/22 10:01 Blood Pressure 110/68 12/09/22 09:58 Blood Pressure Position Sitting 12/09/22 09:58 Pulse Oximetry 99 12/09/22 09:58 Oxygen Delivery Method Room Air 12/09/22 09:58 Oxygen Flow Rate 0 12/09/22 09:58 Pain Level 7 12/09/22 09:58 Lab/Test Results Lab/Test Results: POC- Test(urine) Negative
--- NOTE | 2022-12-09 11:43 | NUR.NOTE ---
Nursing Note: assumed care of patient at this time
== END 2022-12-09 11:49 | disposition home or self-care (01) ==
PROVIDERS: Emergency Provider Nurse Practitioner Family; PCP Nurse Practitioner Family
DX: S82.61XA Displaced fracture of lateral malleolus of right fibula, initial encounter for closed fracture (principal); F17.210 Nicotine dependence, cigarettes, uncomplicated; X50.1XXA Overexertion from prolonged static or awkward postures, initial encounter; Y93.01 Activity, walking, marching and hiking; Y92.9 Unspecified place or not applicable; Y99.9 Unspecified external cause status
CPT/HCPCS: 81025; 99283; 73610

== ENCOUNTER 2023-01-21 15:37 | Emergency (ER) | payer MEDICAID, SELFPAY ==
[2023-01-21 15:56] VITALS: BP 142/85; PULSE 90; RESP 16; TEMP 37.5; O2SAT 99
--- NOTE | 2023-01-21 16:27 | ED.GENADUL_ITS ---
Discharge Plan Disposition Patient Disposition: Home Discharge Details Clinical Impression: Left lumbar radiculopathy Primary Care Provider: Mar Hahn ED Provider: Kamilla Resendiz Home Meds and New Rx's Prescriptions: New prednisone 20 mg tablet 40 mg PO DAILY Qty: 10 0RF Patient Comments: not taking Continued methadone 10 mg/mL Concentrate 50 mg PO DAILY MDD Goes to clinic Discharge Instructions Additional Instructions: take prednisone as prescribed follow-up with PT and your pcp refrain from heavy lifting as much as possible return earlier with new or worsening complaints Stand Alone Forms: Physical Therapy Referral Discharge Data Discharge Date/Time-TO BE ENTERED AT DEPARTURE: 01/21/23 17:08 Medical Decision Making 32-year-old female presents with report of back pain with radiation into the leg Mild left gluteal pain, mild lumbar pain, positive straight leg raise, negative Babinski, DTRs, strength, sensation intact distally, neurovascularly intact, no abdominal tenderness, no flank tenderness, denies any chance of . No visible evidence of trauma Given prednisone, refer back to primary care physician Return precautions reviewed and patient expressed understanding No clinical evidence of cauda equina syndrome, low suspicion for discitis or epidural abscess clinically Ambulatory with steady but antalgic gait HPI General Date/Time Provider Initiated Documentation: 01/21/23 16:21 . HPI Narrative: This 32-year-old female presents with left lumbar back pain with radiation into left lower leg. Denies strength or sensation change strength and sensation intact distally. Denies any abdominal pain. She denies any changes in bowel or bladder, denies any fever or chills. Has not used any IV drugs for the past 5 years per patient. Related Data Home Medications Medication Instructions Recorded Confirmed methadone 10 mg/mL oral concentrate 50 mg PO DAILY 03/04/20 01/21/23 prednisone 20 mg tablet 40 mg PO DAILY #10 tabs 01/21/23 Previous Rx's Medication Instructions Recorded prednisone 20 mg tablet 40 mg PO DAILY #10 tabs 01/21/23 Allergies Allergy/AdvReac Type Severity Reaction Status Date / Time venom-honey bee AdvReac swelling Verified 01/21/23 16:48 [bee venom (honey bee)] of area General Stated Complaint: Orthopedic ANUJ: 4 PFSH All Active Problems (Updated 01/21/23 @ 16:33 by LIZA Gleason) Left lumbar radiculopathy (Acute) Transaminitis (Acute) DVT prophylaxis (Acute) Drug addiction in remission (Chronic) Unintentional Tylenol overdose (Acute) Social History Smoking/Tobacco Use Status: Current every day Tobacco Type: cigarettes Smoking risk assessment performed?: Yes Alcohol Intake: never Drug use: Daily Substance use type: marijuana Details: 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 Housing: apartment Do you feel safe at home: Yes Do you feel safe in your relationship?: Yes Course Vital Signs Vital signs: Vital Signs Temperature 37.5 C 01/21/23 15:56 Pulse 90 01/21/23 15:56 Respiratory Rate 16 01/21/23 15:56 Blood Pressure 142/85 H 01/21/23 15:56 Pulse Oximetry 99 01/21/23 15:56 Temperature 37.5 C 01/21/23 15:56 Temperature Source Skin 01/21/23 15:56 Pulse 90 01/21/23 15:56 Respiratory Rate 16 01/21/23 15:56 Blood Pressure 142/85 H 01/21/23 15:56 Blood Pressure Position Sitting 01/21/23 15:56 Pulse Oximetry 99 01/21/23 15:56 Oxygen Delivery Method Room Air 01/21/23 15:56 Oxygen Flow Rate 0 01/21/23 15:56 Pain Level 10 01/21/23 15:56 Comment ibuprofen 800mg mixed with tylenol 500mg last dose at 0600 today upon awakening 01/21/23 15:56 Lab/Test Results Lab/Test Results: POC- Test(urine) Negative
== END 2023-01-21 17:08 | disposition home or self-care (01) ==
LOC: ER 16:40
PROVIDERS: Emergency Provider Physician Assistant; PCP Nurse Practitioner Family
DX: M54.16 Radiculopathy, lumbar region (principal)
CPT/HCPCS: 99283; 99284

== ENCOUNTER 2023-09-12 07:38 | Emergency (ER) | payer MEDICAID, SELFPAY ==
[2023-09-12 07:44] VITALS: BP 110/59; PULSE 95; RESP 18; TEMP 36.6; O2SAT 100
--- NOTE | 2023-09-12 08:02 | ED.GENADUL_ITS ---
Discharge Plan Disposition Patient Disposition: Home Condition: Improving Discharge Details Clinical Impression: Facial cellulitis, Dental infection Primary Care Provider: Unknown,Unknown ED Provider: Alirio Guevara Home Meds and New Rx's Prescriptions: New amoxicillin-pot clavulanate 875-125 mg tablet 1 tab PO BID 7 Days Qty: 14 0RF No Action methadone 10 mg/mL Concentrate 50 mg PO DAILY MDD Goes to clinic ibuprofen [IBU] 800 mg tablet 800 mg PO TID-QID PRN Discharge Instructions Instructions: Cellulitis (ED) Additional Instructions: Please return to the emergency department for any worsening symptoms. HPI General Date/Time Provider Initiated Documentation: 09/12/23 07:54 . HPI Narrative: 32-year-old female history of prior substance use, presents with dental infection over the last several days, woke up this morning with swelling to left side of her face. Related Data Home Medications Medication Instructions Recorded Confirmed methadone 10 mg/mL oral concentrate 50 mg PO DAILY 03/04/20 09/12/23 amoxicillin 875 mg-potassium 1 tab PO BID 7 days #14 tabs 09/12/23 clavulanate 125 mg tablet ibuprofen 800 mg tablet (IBU) 800 mg PO TID-QID PRN 09/12/23 09/12/23 Previous Rx's Medication Instructions Recorded amoxicillin 875 mg-potassium 1 tab PO BID 7 days #14 tabs 09/12/23 clavulanate 125 mg tablet Allergies Allergy/AdvReac Type Severity Reaction Status Date / Time venom-honey bee AdvReac swelling Verified 09/12/23 07:46 [bee venom (honey bee)] of area General Stated Complaint: DentalOral ANUJ: 3 Review of Systems Narrative: Review of Systems Constitutional: negative Eyes: negative ENT: Facial swelling, dental infection Cardiovascular: negative Respiratory: negative Gastrointestinal: negative : negative Musculoskeletal: negative Skin: negative Neurologic: negative Psych: negative Exam Narrative Exam Narrative: Physical Examination General: alert, awake, cooperative, resting comfortably, no acute distress HEENT: normocephalic, atraumatic; PERRL, EOM intact, conjunctiva normal; no nasal discharge; moist mucous membranes, oral and pharyngeal mucosa normal, tolerating secretions; induration swelling to left side of face involving maxilla and infraorbital soft tissue, multiple fractured and carious teeth largely edentulous no evidence of periapical abscess Neck: supple, trachea midline; full ROM Chest: normal to inspection Respiratory: normal respiratory effort, speaking in full sentences, clear to auscultation, no wheezing, rales or rhonchi Cardiac: regular rate, regular rhythm, S1S2 intact, no murmurs rubs or gallops GI: abdomen soft, non-tender, non-distended; no palpable mass or hepatosplenomegaly Skin: no lesions, rashes or trauma appreciated Neuro: AAOx3, normal speech, moving all extremities Psych: Appropriate mood and affect Course Vital Signs Vital signs: Vital Signs Temperature 36.6 C 09/12/23 07:44 Pulse 95 H 09/12/23 07:44 Respiratory Rate 18 09/12/23 07:44 Blood Pressure 110/59 L 09/12/23 07:44 Pulse Oximetry 100 09/12/23 07:44 Temperature 36.6 C 09/12/23 07:44 Temperature Source Temporal Artery Scan 09/12/23 07:44 Pulse 95 H 09/12/23 07:44 Respiratory Rate 18 09/12/23 07:44 Blood Pressure 110/59 L 09/12/23 07:44 Blood Pressure Position Sitting 09/12/23 07:44 Pulse Oximetry 100 09/12/23 07:44 Oxygen Delivery Method Room Air 09/12/23 07:44 Oxygen Flow Rate 0 09/12/23 07:44 Pain Level 5 09/12/23 07:44 Lab/Test Results Lab/Test Results: 09/12/23 07:58 Blood Blood Culture - Pending 09/12/23 07:58 Blood Blood Culture - Pending Medical Decision Making 32-year-old female presents with likely facial cellulitis left side stemming from dental infection, no evidence of periapical abscess, no evidence of airway compromise, no evidence of Frederick's angina, no evidence of septic thrombophlebitis or retropharyngeal abscess or peritonsillar abscess; will obtain blood cultures basic labs, will provide IV Unasyn, dexamethasone Toradol, fluids, disposition will depend on response to medication. If improving consider transition to Augmentin 10: 00 great improvement of facial swelling. Patient resting comfortably nontoxic. Will transition to Augmentin. Home care instructions and return precautions given. 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
[2023-09-12 08:52] LABS: Abs Immature Grans 0.04 10^3/uL (0.0-0.06); Absolute Basophil Count 0.02 10^3/uL (0.0-0.2); Absolute Eosinophil Count 0.05 10^3/uL (0.0-0.7); Absolute Lymphocyte Count 1.46 10^3/uL (1.2-3.4); Absolute Monocyte Count 0.84 10^3/uL (0.1-0.8); Basophils % 0.2 %; Eosinophils % 0.4 %; HCT 41.4 % (36.0-46.0); HGB 13.6 g/dL (11.2-15.7); Immature Grans % 0.3 %; Lymphocytes % 11.9 %; MCH 30.9 pg (27.0-33.0); MCHC 32.9 % (32.0-36.0); MCV 94 fL (80-95); MPV 10.1 fL (8.0-11.0); Monocytes % 6.8 %; Neutrophils % 80.4 %; Platelet Count 224 10^3/uL (130-400); RDW 13.4 % (11.7-14.6); RDW-SD 45.7 fL; WBC 12.31 10^3/uL (4.4-10.8)
[2023-09-12] MEDS: Normal Saline 1,000 ML 1000 ML IV (08:58)
[2023-09-12 09:03] VITALS: BP 110/59; PULSE 95; RESP 18; TEMP 36.6; O2SAT 100
[2023-09-12 09:12] LABS: ALT 16 U/L (14-59); AST 16 U/L (15-37); Albumin 4.2 g/dL (3.4-5.0); Alkaline Phosphatase 72 U/L (46-116); Anion Gap 12.2 mmol/L (3-11); BUN 12 mg/dL (7-18); Bilirubin, Total 0.4 mg/dL (0.2-1.0); CO2 24.8 mmol/L (21.0-32.0); CREATININE 0.8 mg/dL (0.55-1.02); Calcium 8.9 mg/dL (8.5-10.1); Chloride 106 mmol/L (98-107); Estimated GFR 100.96 (mL/min/1.73m2); Glucose 90 mg/dL (74-106); Potassium 3.5 mmol/L (3.5-5.1); Sodium 143 mmol/L (136-145); Total Protein 7.8 g/dL (6.4-8.2)
[2023-09-12] MEDS: Ketorolac 15 MG/ML VIAL IVP (09:18)
[2023-09-12] MEDS: Dexamethasone 10 MG/ML VIAL IVP (09:18)
[2023-09-12] MEDS: AMPICILLIN/SULBACTAM 3 GM in Normal Saline 100 ML IVPB (09:19)
[2023-09-12 10:11] VITALS: BP 108/73; PULSE 70; O2SAT 100
== END 2023-09-12 10:12 | disposition home or self-care (01) ==
PROVIDERS: Emergency Provider Emergency Medicine
DX: K04.7 Periapical abscess without sinus (principal); L03.211 Cellulitis of face; F17.210 Nicotine dependence, cigarettes, uncomplicated
CPT/HCPCS: 36415; 80053; 87040; 96365; 96375; 99284; 85025; 99283; J0295; J1100; J1885

== ENCOUNTER 2024-03-18 13:33 | Emergency (ER) | payer MEDICAID, SELFPAY ==
[2024-03-18 13:39] VITALS: BP 129/75; PULSE 63; RESP 10; TEMP 36.7; O2SAT 99
--- NOTE | 2024-03-18 14:41 | ED.GENADUL_ITS ---
Discharge Plan Disposition Patient Disposition: Home Condition: Good Discharge Details Clinical Impression: Abrasion, corneal Primary Care Provider: Unknown,Unknown ED Provider: Becca Bird Home Meds and New Rx's Prescriptions: Continued methadone 10 mg/mL Concentrate 50 mg PO DAILY MDD Goes to clinic ibuprofen [IBU] 800 mg tablet 800 mg PO TID-QID PRN Discharge Instructions Instructions: Corneal Abrasion ED Additional Instructions: As we discussed, I do not see any remnant of the glue still in the eye. Rather, chemical seems to have caused an abrasion to the cornea. This should heal on its own but I am concerned about your risk for infection and would like for you to use the erythromycin ointment as prescribed. Please put 1 cm strip into the left eye 4 times daily. May continue to use sunglasses to help protect from bright lights and help with discomfort. Please call [facility] today to schedule follow-up appointment in the next 24 to 48 hours. If you develop any worsening vision, headache, fever/chills, discharge from the eye or other new/worsening symptom please seek care urgently once again. Tetanus updated today. Referrals: [facility] [Outside] Discharge Data Discharge Date/Time-TO BE ENTERED AT DEPARTURE: 03/18/24 14:53 HPI General Date/Time Provider Initiated Documentation: 03/18/24 13:51 . Limitations to Documentation: no limitations . Information obtained by: patient, family and RN notes reviewed . History of Present Illness 33 year old F presents to the emergency department with the chief complaint of Glue in left eye, described as moderate, Quality is described as aching, and is localized to the eyes. Patient reports no radiation. Patient started experiencing this day(s) and it has been constant. No relieving factors improve symptom(s), Other factors that worsen symptoms (Photophobia) . Patient notes no other symptoms.. Patient did receive the following treatments prior to arrival, none Related Data Home Medications ?Medication ?Instructions ?Recorded ?Confirmed methadone 10 mg/mL oral concentrate 50 mg PO DAILY 03/04/20 03/18/24 ibuprofen 800 mg tablet (IBU) 800 mg PO TID-QID PRN 09/12/23 03/18/24 Allergies Allergy/AdvReac Type Severity Reaction Status Date / Time venom-honey bee (bee venom AdvReac swelling Verified 03/18/24 13:44 (honey bee)) of area General Stated Complaint: EyeProblem ANUJ: 4 Review of Systems Constitutional Constitutional: Reports as per HPI, Denies chills, Denies fever(s) and Denies headache(s) Eyes Eyes: Reports as per HPI ENT Ears, Nose, Mouth, and Throat: Denies headache(s) Cardiovascular Cardiovascular: Reports as per HPI, Denies chest pain and Denies lightheadedness Respiratory Respiratory: Denies cough Integumentary/Breasts Skin/Breast: Reports as per HPI, Denies rash, Denies skin pain and Denies skin swelling Neurologic Neurologic: Denies headache(s) and Denies radicular pain Exam Const General: cooperative, healthy appearing, comfortable, no acute distress, well developed and well groomed Nutritional Appearance: average body habitus and well nourished Orientation: alert, awake and oriented x3 HENMT Head: normal to inspection, normocephalic and atraumatic General nose exam: nares normal Face and sinus: normal facial exam and face symmetric Mouth: oral mucosae normal, lip normal and moist mucous membranes Eyes General: appearance normal, both eyes and all related structures Visual Falk: normal visual falk by confrontation Alignment and Position: alignment normal and position normal Periorbital: periorbital findings normal Eyelids: eyelids normal Conjunctivae: conjunctivae normal Cornea: corneas abnormal on the left fluorescein used and abrasion at the following clock position (6) and fluorescein used Pupils: PERRL, normal by confrontation and accommodation normal EOM: EOM intact bilaterally Resp Effort & Inspection: normal respiratory effort, able to speak in complete sentences and no respiratory distress Skin General skin exam: no rashes or lesions noted Neuro General: patient alert, patient awake and patient oriented x3 Cognition: normal cognition Speech: speech normal Gait: normal gait Course Vital Signs Vital signs: Vital Signs Temperature 36.7 C 03/18/24 13:39 Pulse 63 03/18/24 13:39 Respiratory Rate 10 L 03/18/24 13:39 Blood Pressure 129/75 03/18/24 13:39 Pulse Oximetry 99 03/18/24 13:39 Temperature 36.7 C 03/18/24 13:39 Temperature Source Oral 03/18/24 13:39 Pulse 63 03/18/24 13:39 Respiratory Rate 10 L 03/18/24 13:39 Respiratory Effort Normal, Non-Labored 03/18/24 13:43 Blood Pressure 129/75 03/18/24 13:39 Blood Pressure Position Sitting 03/18/24 13:39 Pulse Oximetry 99 03/18/24 13:39 Oxygen Delivery Method Room Air 03/18/24 13:39 Oxygen Flow Rate 0 03/18/24 13:39 Pain Level 5 03/18/24 13:39 Medical Decision Making Patient is a pleasant 33-year-old female, accompanied by her boss, presenting today with chief complaint of foreign body sensation in her left eye after getting glue in her eye yesterday. She reports that she was applying her synthetic nails with gorilla glue at home last night when she tried to flick a large clump of the glue away from the nailbed causing it to fly into her eye. She reports that she immediately had this foreign body sensation that this has persisted throughout the day today. She endorses photophobia. Endorses some eye discomfort and tearing of the eye. She reports that she is supposed to wear glasses but has not in some time. She does not wear contacts. She is followed up by [facility]. She denies any fevers or chills. Is not taking anything for her discomfort but patient is on methadone. Has taken her routine dosing today. On exam, patient appears nontoxic. She initially had a eye cover on with the bright lights, she readily remove this once I turned down the lighting. Patient any significant injection. No discharge. No sick significant injection of the eye. Pupils are equal round and reactive. Extraocular movements are intact. No foreign body appreciated in the lid, lids were everted. Normal-appearing extraocular structures. Tetracaine was applied and had good anesthetic effect. Suggests isolation to this area. Fluorescein was then applied and patient was examined using the slit-lamp. At the 6 o'clock position, patient has a circular appearing abrasion which is similar to an ulcer but appears to be more consistent with an actual abrasion or chemical irritant. Do not appreciate any discoloration when looking at the cornea itself this is only noted with fluorescein uptake. Negative Lizeth sign. No indication of globe rupture, acute space infection, visual loss. Will treat the patient with erythromycin ointment. I have encouraged that she follow-up with [facility], where she typically gets her care, in the next 24 to 48 hours for reevaluation. Strict return precautions were discussed. Discussed supportive care management. Patient's tetanus was not up-to-date so this will be updated today. All of her questions and concerns were addressed and she is in agreement this plan. This documentation was generated using [email or web address] system, please disregard any oddities of phrase or misspellings. 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
[2024-03-18] MEDS: Tetracaine 0.5% 4 ML BTL (14:46)
[2024-03-18] MEDS: Fluorescein STRIPS 100/BOX 1 MG (14:46)
[2024-03-18] MEDS: Erythromycin Ophth Oint 3.5 GM TUBE OS (14:53)
[2024-03-18 14:56] VITALS: BP 142/93; PULSE 71; RESP 14; O2SAT 100
== END 2024-03-18 14:53 | disposition home or self-care (01) ==
LOC: ER 14:50
PROVIDERS: Emergency Provider Physician Assistant
DX: S05.02XA Injury of conjunctiva and corneal abrasion without foreign body, left eye, initial encounter (principal); F17.210 Nicotine dependence, cigarettes, uncomplicated; W44.8XXA Other foreign body entering into or through a natural orifice, initial encounter; Y93.E8 Activity, other personal hygiene
CPT/HCPCS: 90471; 90715; 99283

== ENCOUNTER 2024-09-27 08:10 | Emergency (ER) | payer MEDICAID, SELFPAY ==
[2024-09-27 08:14] VITALS: BP 127/76; PULSE 95; RESP 15; TEMP 37.1; O2SAT 100
[2024-09-27 08:19] VITALS: BP 127/76; PULSE 95; RESP 15; TEMP 37.1; O2SAT 100
--- NOTE | 2024-09-27 08:29 | ED.GENADUL_ITS ---
Discharge Plan Disposition Patient Disposition: Home Condition: Stable Discharge Details Clinical Impression: Cat scratch of face, Infection of cat scratch wound Primary Care Provider: Unknown,Unknown ED Provider: Mey Forrest Home Meds and New Rx's Prescriptions: New amoxicillin-pot clavulanate 875-125 mg tablet 1 tab PO BID 10 Days Qty: 20 0RF No Action methadone 10 mg/mL Concentrate 50 mg PO DAILY MDD Goes to clinic ibuprofen [IBU] 800 mg tablet 800 mg PO TID-QID PRN Discharge Instructions Instructions: Taking care of cuts, scrapes, and puncture wounds, Wound Infection Additional Instructions: Please take the antibiotic with yogurt or a probiotic as directed twice daily. Keep the wounds clean and dry. Allow them to air dry at least 2 hours a day. No soaking. Follow up with primary care provider in 3-5 days. Return to ED sooner if any worsening swelling, red streaks, worsening draining after 3 days of the antibiotics fever chills or concerns. Please take Tylenol or Ibuprofen with food every 4-6 hours as needed for pain and swelling. Referrals: Primary Care Provider [Outside] - 3 days Discharge Data Discharge Date/Time-TO BE ENTERED AT DEPARTURE: 09/27/24 08:55 HPI General Mode of arrival: ambulatory . Date/Time Provider Initiated Documentation: 09/27/24 08:12 . Limitations to Documentation: no limitations . Information obtained by: patient, RN notes reviewed and old records reviewed . HPI Narrative: 33-year-old female presents to the ER with a chief complaint of cat scratch with purulent discharge which she noticed yesterday. She reports that approximately 4 days ago she was scratched on her forehead and right confucianism by her cat that was spooked. She has been cleaning and at home placing topical bacitracin however last night she noticed that it had purulent drainage, swelling and some erythema surrounding it. She denies any fever does endorse some chills she is afebrile upon arrival. Related Data Home Medications ?Medication ?Instructions ?Recorded ?Confirmed methadone 10 mg/mL oral concentrate 50 mg PO DAILY 03/04/20 09/27/24 ibuprofen 800 mg tablet (IBU) 800 mg PO TID-QID PRN 09/12/23 09/27/24 amoxicillin 875 mg-potassium 1 tab PO BID 10 days #20 tabs 09/27/24 clavulanate 125 mg tablet Previous Rx's ?Medication ?Instructions ?Recorded amoxicillin 875 mg-potassium 1 tab PO BID 10 days #20 tabs 09/27/24 clavulanate 125 mg tablet Allergies Allergy/AdvReac Type Severity Reaction Status Date / Time venom-honey bee (bee venom AdvReac swelling Verified 09/27/24 08:19 (honey bee)) of area General Stated Complaint: AnimalBite ANUJ: 4 Review of Systems Constitutional Constitutional: Denies body ache(s), Denies chills, Denies fatigue, Denies fever(s) and Denies headache(s) ENT Ears, Nose, Mouth, and Throat: Denies headache(s) Integumentary/Breasts Skin/Breast: Reports as per HPI, Reports erythema and Reports wounds Neurologic Neurologic: Denies headache(s) Endocrine Endocrine: Denies fatigue Exam Const General: cooperative, comfortable and well developed Nutritional Appearance: average body habitus Orientation: alert, awake and oriented x3 HENMT Head: normal to inspection, no palpable skull fracture and abrasion Head images: 2 1. Puncture wound with approximately 0.5 cm surrounding erythema in diameter with some green-yellow purulent drainage 2. Superficial laceration mild surrounding redness. Resp Effort & Inspection: normal respiratory effort and able to speak in complete sentences Course Vital Signs Vital signs: Vital Signs Temperature 37.1 C 09/27/24 08:14 Pulse 95 H 09/27/24 08:14 Respiratory Rate 15 09/27/24 08:14 Blood Pressure 127/76 09/27/24 08:14 Pulse Oximetry 100 09/27/24 08:14 Temperature 37.1 C 09/27/24 08:19 Temperature Source Oral 09/27/24 08:19 Pulse 95 H 09/27/24 08:19 Respiratory Rate 15 09/27/24 08:19 Blood Pressure 127/76 09/27/24 08:19 Blood Pressure Position Sitting 09/27/24 08:19 Pulse Oximetry 100 09/27/24 08:19 Oxygen Delivery Method Room Air 09/27/24 08:19 Oxygen Flow Rate 0 09/27/24 08:19 Pain Level 6 09/27/24 08:19 Medical Decision Making 33-year-old female presents to the ER with a chief complaint of cat scratch with purulent discharge which she noticed yesterday. She reports that approximately 4 days ago she was scratched on her forehead and right confucianism by her cat that was spooked. She has been cleaning and at home placing topical bacitracin however last night she noticed that it had purulent drainage, swelling and some erythema surrounding it. She denies any fever does endorse some chills she is afebrile upon arrival. No signs of septicemia or toxicity does appear to be localized infection at this time. Will give Augmentin, perform wound care with chlorhexidine. This text was generated using [employer] dictation system, please disregard any oddities of phrase or misspellings. 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
--- NOTE | 2024-09-27 08:31 | NUR.NOTE ---
Faxed Cat Bite form to Melisa Childress in [place] at [phone]
[2024-09-27] MEDS: Amox. 875/Clav. 125, 2 TABS/BTL 1 TAB PO (08:46)
[2024-09-27] MEDS: Amoxicillin 875/Clav. 125 TAB PO (08:47)
== END 2024-09-27 08:55 | disposition home or self-care (01) ==
PROVIDERS: Emergency Provider Registered Nurse Emergency
DX: S00.81XA Abrasion of other part of head, initial encounter (principal); L08.9 Local infection of the skin and subcutaneous tissue, unspecified; W55.03XA Scratched by cat, initial encounter; Y93.89 Activity, other specified; Y92.018 Other place in single-family (private) house as the place of occurrence of the external cause; F17.210 Nicotine dependence, cigarettes, uncomplicated
CPT/HCPCS: 99283